=== PATIENT | male | born 1980 | race Two or more races ===

== ENCOUNTER 2018-08-02 10:33 | Emergency (ER) | payer OTHER ==
[2018-08-02] MEDS ORDERED: NS 1,000 ML IV ONE ×2 (10:49→11:02)
[2018-08-02] MEDS ORDERED: ONDANSETRON 4 MG/2 ML VIAL IVP ONE (10:49)
[2018-08-02] MEDS ORDERED: KETOROLAC 30 MG/1 ML SDV IVP ONE (10:50)
[2018-08-02] MEDS ORDERED: KETOROLAC 15 MG/1 ML SDV IVP ONE (11:02)
[2018-08-02] MEDS ORDERED: DIAZEPAM 5 MG TAB PO ONE (11:02)
[2018-08-02] MEDS ORDERED: fentaNYL 100 MCG/2 ML INJ IVP ONE (11:02)
--- NOTE | 2018-08-02 11:12 | EDPHY ---
General Time Seen by Provider: 08/02/18 10:55 Narrative: CLINICAL IMPRESSION: Left ureterolithiasis ASSESSMENT/PLAN: 38-year-old Yemeni-speaking only male with a past medical history of nephrolithiasis, in our area from [place], presents to the emergency department with left flank pain that began this morning. Patient is obviously uncomfortable on arrival but with stable vital signs. He received IV analgesics with significant improvement in discomfort. Urine shows significant hematuria with no pyuria or bacteriuria. Normal creatinine. CT shows an obstructive 7 mm mid left ureterolithiasis associated with hydronephrosis. I offered to call our local urologist but patient states he would rather follow up with his urologist in [place]. He has been seen through [facility] in the past. He currently reports no insurance coverage. He was given prescriptions for Flomax, a urine strainer, Valium, and pain medication. Low threshold for return to ED sooner for worsening symptoms as outlined in person and discharge papers. rigger apprentice used for entirety of history, exam, discussion of diagnostic study results and discharge instructions. DIFFERENTIAL DX: Abdominal pain includes but not limited to acute nephrolithiasis, ureterolithiasis, UTI, pyelonephritis,diverticulitis, SBO, gastroenteritis, constipation ED PROCEDURES: See lab and/or imaging results below ED COURSE: 11:00 a.m.. Patient seen and assessed by myself. Colicky, appears uncomfortable, tachypneic, hypertensive, afebrile. Plan for IV, analgesics, labs, CT scan. Urine with hematuria, suspicious for nephrolithiasis in patient with history of kidney stones. 11:55 a.m.: CT results discussed with Radiology. Patient has a left obstructive 7 mm stone in the mid ureter. Patient was updated on CT results. He is only in the [place] area working and lives in [place]. We discussed urology follow-up in [place] where he has been seen previously. Pain meds and Flomax will be provided. CHIEF COMPLAINT: Left flank pain, "I have a kidney stone". HPI: 38-year-old Yemeni-speaking only male presents to the emergency department with left flank pain radiating over the left hip into the left scrotum since this morning. Patient reports he has a history of kidney stones and believes he has another kidney stone. He reports his last kidney stone was 6 years ago. He has required and nephrostomy to at 1 point in the past in order to retrieve the stone otherwise he has been able to pass most of the stones. Prior care has been done at [facility]. He does not have a local urologist. No reported fever or chills. No dysuria. No testicular swelling or scrotal pain. No history of chronic UTIs. PAST MEDICAL HISTORY: Past history of kidney stones See nurse/triage notes for additional history if applicable Pertinent Past Surgical History: Nephrostomy tube for kidney stones Family History: None reported Social History: Former smoker, otherwise healthy REVIEW OF SYSTEMS: All other systems negative Constitutional: No fever, no chills, appetite change. Cardiovascular: No chest pain, no palpitations. Respiratory: No cough, no shortness of breath. Gastrointestinal: No abdominal pain, no vomiting, diarrhea. Genitourinary: Positive for hematuria, dysuria, positive for left-sided flank pain, pelvic pain Musculoskeletal: Positive for back pain, joint swelling, joint pain, myalgias.] Skin: No rashes, color change. PHYSICAL EXAM: General Appearance: Alert, oriented, appears uncomfortable, colicky, writhing on the bed, Yemeni-speaking only non-toxic appearing, tachypneic, hypertensive , no hypoxia. Respiratory: There are no retractions, lungs are clear to auscultation. Cardiac: Regular rate and rhythm, no murmurs or gallops. Gastrointestinal: Abdomen is soft, nontender, bowel sounds normal, no masses/ hernia, no rigidity, guarding or focal peritoneal findings. Neurological: [ Alert and oriented x 3 Skin: Warm, dry, no rashes, no nodules on palpation. Musculoskeletal: Extremities are symmetrical, full range of motion, no tenderness, deformity, swelling, or erythema. Reproducible left flank pain Psychiatric: Patient is oriented X 3, there is no agitation. MEDICAL DECISION MAKING: Patient was seen independently. Secondary supervising physician at time of evaluation was Dr. Tam . Diagnosis: Left ureterolithiasis. New, requires workup Summary: See Assessment and Plan for summary of ED visit Clinical lab tests: ordered / reviewed. Independent visualization of images, tracing, or specimens: Yes. Discussed CT results with radiology Patient Progress: Stable for discharge. - Diagnostics Imaging Results: Imaging Impressions Abdomen/Pelvis CT 08/02/18 11:03 IMPRESSION: 1. 7 x 5 mm obstructing left ureteral stone causing moderate hydronephrosis. Kenji Mcgarryino was notified these findings by telephone at 11:56 AM on 08/02/2018 - History Smoking Status: Former smoker - Objective Vital Signs: Initial Vital Signs Temperature (C) 36.7 C 08/02/18 10:37 Heart Rate 66 08/02/18 10:37 Respiratory Rate 24 H 08/02/18 10:37 Blood Pressure 156/89 H 08/02/18 10:37 O2 Sat (%) 100 08/02/18 10:37 O2 Delivery Mode Room Air Allergies/Adverse Reactions: No Known Allergies Allergy (Unverified 08/02/18 10:36) Home Medications: Medication Instructions Recorded Diazepam [Valium] 5 mg PO Q8PRN PRN #10 tab 08/02/18 Ondansetron Odt [Zofran Odt] 4 mg PO Q4PRN PRN #7 tab 08/02/18 Tamsulosin HCl [Flomax 0.4 MG (RX)] 0.4 mg PO DAILY #7 cap 08/02/18 oxyCODONE/APAP 5/325 [Percocet 1 tab PO Q6 PRN #12 tab 08/02/18 5/325] Laboratory Results: Laboratory Results 08/02/18 11:30 08/02/18 11:05 08/02/18 08/02/18 08/02/18 11:30 11:05 11:05 WBC 12.16 10^3/uL H 10^3/uL REJ (3.80-9.50) RBC 5.00 10^6/uL 10^6/uL REJ (4.40-6.38) Hgb 13.5 g/dL L g/dL REJ (13.7-17.5) Hct 41.2 % % REJ (40.0-51.0) MCV 82.4 fL fL REJ (81.5-99.8) MCH 27.0 pg L pg REJ (27.9-34.1) MCHC 32.8 g/dL g/dL REJ (32.4-36.7) RDW 13.6 % % REJ (11.5-15.2) Plt Count 249 10^3/uL 10^3/uL REJ (150-400) MPV 10.0 fL fL REJ (8.7-11.7) Neut % (Auto) 87.9 % H % REJ (39.3-74.2) Lymph % (Auto) 7.1 % L % REJ (15.0-45.0) [place] % (Auto) 3.9 % L % REJ (4.5-13.0) Eos % (Auto) 0.1 % L % REJ (0.6-7.6) Baso % (Auto) 0.4 % % REJ (0.3-1.7) Nucleat RBC Rel Count 0.0 % % REJ (0.0-0.2) Absolute Neuts (auto) 10.70 10^3/uL H 10^3/uL REJ (1.70-6.50) Absolute Lymphs (auto) 0.86 10^3/uL L 10^3/uL REJ (1.00-3.00) Absolute Monos (auto) 0.47 10^3/uL 10^3/uL REJ (0.30-0.80) Absolute Eos (auto) 0.01 10^3/uL L 10^3/uL REJ (0.03-0.40) Absolute Basos (auto) 0.05 10^3/uL 10^3/uL REJ (0.02-0.10) Absolute Nucleated RBC 0.00 10^3/uL 10^3/uL REJ (0-0.01) Immature Gran % 0.6 % % REJ (0.0-1.1) Immature Gran # 0.07 10^3/uL 10^3/uL REJ (0.00-0.10) Sodium 138 mEq/L mEq/L (135-145) Potassium 4.6 mEq/L mEq/L (3.5-5.2) Chloride 106 mEq/L mEq/L (97-110) Carbon Dioxide 18 mEq/l L mEq/l (22-31) Anion Gap 14 mEq/L mEq/L (6-14) BUN 16 mg/dL mg/dL (7-23) Creatinine 1.0 mg/dL mg/dL (0.7-1.3) Estimated GFR > 60 Glucose 94 mg/dL mg/dL (70-100) Calcium 10.4 mg/dL mg/dL (8.5-10.4) Specimen Hemolysis 172 Urine Color Urine Appearance Urine pH Ur Specific [place] Urine Protein Urine Ketones Urine Blood Urine Nitrate Urine Bilirubin Urine Urobilinogen Ur Leukocyte Esterase Urine RBC Urine WBC Ur Epithelial Cells Urine Glucose 08/02/18 10:40 WBC RBC Hgb Hct MCV MCH MCHC RDW Plt Count MPV Neut % (Auto) Lymph % (Auto) [place] % (Auto) Eos % (Auto) Baso % (Auto) Nucleat RBC Rel Count Absolute Neuts (auto) Absolute Lymphs (auto) Absolute Monos (auto) Absolute Eos (auto) Absolute Basos (auto) Absolute Nucleated RBC Immature Gran % Immature Gran # Sodium Potassium Chloride Carbon Dioxide Anion Gap BUN Creatinine Estimated GFR Glucose Calcium Specimen Hemolysis Urine Color PALE YELLOW Urine Appearance CLEAR Urine pH 8.0 H (5.0-7.5) Ur Specific [place] 1.017 (1.002-1.030) Urine Protein NEGATIVE (NEGATIVE) Urine Ketones 1+ H (NEGATIVE) Urine Blood 1+ H (NEGATIVE) Urine Nitrate NEGATIVE (NEGATIVE) Urine Bilirubin NEGATIVE (NEGATIVE) Urine Urobilinogen NEGATIVE EU EU (0.2-1.0) Ur Leukocyte Esterase NEGATIVE (NEGATIVE) Urine RBC 50-182 /hpf H /hpf (0-3) Urine WBC 1-3 /hpf /hpf (0-3) Ur Epithelial Cells NONE SEEN /lpf /lpf (NONE-1+) Urine Glucose NEGATIVE (NEGATIVE) Medications Given: Discontinued Medications Diazepam (Valium) 2.5 mg PO EDNOW ONE Stop: 08/02/18 11:03 Last Admin: 08/02/18 11:09 Dose: 2.5 mg Fentanyl (Sublimaze) 50 mcg IVP EDNOW ONE Stop: 08/02/18 11:03 Last Admin: 08/02/18 11:08 Dose: 50 mcg Hydromorphone HCl (Dilaudid) 0.5 mg IVP EDNOW ONE Stop: 08/02/18 12:07 Last Admin: 08/02/18 12:12 Dose: 0.5 mg Sodium Chloride (Ns) 1,000 mls @ 0 mls/hr IV ONCE ONE PRN Reason: Wide Open Stop: 08/02/18 10:50 Last Admin: 08/02/18 11:09 Dose: 1,000 mls Sodium Chloride (Ns) 1,000 mls @ 0 mls/hr IV EDNOW ONE; Wide Open PRN Reason: Protocol Stop: 08/02/18 11:03 Last Admin: 08/02/18 12:00 Dose: 1,000 mls Ketorolac Tromethamine (Toradol) 15 mg IVP EDNOW ONE Stop: 08/02/18 11:03 Last Admin: 08/02/18 11:08 Dose: 15 mg Ondansetron HCl (Zofran) 4 mg IVP EDNOW ONE Stop: 08/02/18 10:50 Last Admin: 08/02/18 12:37 Dose: Not Given Departure - Departure Disposition: Home, Routine, Self-Care Clinical Impression: Ureterolithiasis Condition: Good Instructions: Kidney Stones (ED) Additional Instructions: DISCHARGE INSTRUCTIONS FROM YOUR DOCTOR Thank you for visiting our emergency department today. You were treated by a physician research program assistant today and your case was reviewed with our ED Attending physician. Please keep in mind that discharge from the emergency department does not mean that there is nothing wrong - it simply means that we have not identified an emergency condition that requires further evaluation or treatment in the hospital. You should always plan to follow up with primary care for re- evaluation of your condition in the next 2-3 days. If you have been referred to a specialist, please call as soon as possible (today or tomorrow) to schedule your follow up appointment at the appropriate time. CT SCAN TODAY SHOWS THAT YOU HAVE A 7 MM LEFT URETERAL KIDNEY STONE. THIS MAY PASS ON ITS OWN BUT WE STRONGLY RECOMMEND YOU FOLLOW-UP WITH UROLOGY. PLEASE CONTACT THE PREVIOUS UROLOGIST YOU SAW IN [facility]. A LOCAL UROLOGY REFERRAL WAS ALSO GIVEN. YOU NEED TO CALL FOR AN APPOINTMENT. PLEASE TAKE FLOMAX TO MAKE YOU URINATE MORE. PLEASE STRAIN URINE. PAIN MEDICATION WAS GIVEN WELL. DO NOT DRIVE OR DRINK ALCOHOL WHILE TAKING NARCOTIC PAIN MEDICATION. PLEASE BE AWARE, NARCOTICS CAN CAUSE CONSTIPATION, LETHARGY, AND INCREASE YOUR RISK OF FALLING. DO NOT TAKE TYLENOL AT THE SAME TIME VICODIN OR PERCOCET. PLEASE RETURN TO THE EMERGENCY DEPARTMENT FOR SEVERE PAIN, FEVER OR CHILLS, NAUSEA OR VOMITING, INABILITY TO URINATE, OR ANY OTHER CONCERNS. People present with illnesses and injuries in different ways, and it is always possible that we have missed something. You may always return for re-evaluation if symptoms worsen or if they are not improving or if you develop new/different symptoms. Again, thank you for choosing our emergency department. We hope that you feel better. INSTRUCCIONES DE DESCARGA DE SCOTT MDICO Ayush por visitar nuestro departamento de emergencias jose. Usted fue atendido por un asistente mdico jose y scott ariel fue revisado con nuestro mdico de urgencias. Tenga en cuenta que el andreina del departamento de emergencias no significa que no haya nada forrest, simplemente significa que no hemos identificado mary condicin de emergencia que requiera mary evaluacin o tratamiento adicional en el hospital. Siempre debe planificar un seguimiento con atencin primaria para la reevaluacin de scott condicin en los prximos 2 a 3 mitchell. Si duran sido referido a un especialista, llame lo antes posible (jose o pilar sawyer) para programar scott franklin de seguimiento en el momento adecuado. La tomografia computarizada S BENY MUESTRA QUE TIENE MARY ISA DE RIN URETERAL IZQUIERDA DE 7 MM. ESTO PUEDE PASAR POR SCOTT PROPIA DANIEL LE RECOMENDAMOS EN FORMA EXCEPCIONAL A LA UROLOGA. PNGASE EN CONTACTO CON EL UROLOGO ANTERIOR QUE ANTHONY EN [facility]. TAMBIN SE LE DURAN DADO MARY REFERENCIA DE UROLOGA LOCAL. USTED NECESITA LLAMAR PARA MARY FRANKLIN. POR FAVOR, TOME FLOMAX PARA HACER QUE URZA MS. POR FAVOR ESENINA DE ORINA. La medicacin contra el dolor se mitchell sanchez fern. NO CONDUZCA NI TIFF ALCOHOL MIENTRAS JOB MEDICAMENTOS NARCTICOS PARA EL DOLOR. POR FAVOR TENGA EN CUENTA, LOS NARCTICOS PUEDEN CAUSAR EXTREMINIENTO, Y PUEDE AUMENTAR SCOTT RIESGO DE CADAS. NO TOME TYLENOL AL MISMO TIEMPO QUE VICODIN O PERCOCET. POR FAVOR REGRESE AL DEPARTAMENTO DE EMERGENCIA POR DOLOR JENNI, FIEBRE O ENFERMEDADES, NAUSEA O VMITOS, INCAPACIDAD DE LA URINACIN O CUALQUIER OTRA PREOCUPACIN. Las personas se presentan con enfermedades y lesiones de diferentes maneras, y siempre es posible que nos hayamos perdido algo. Siempre puede regresar para mary nueva evaluacin si los sntomas empeoran o si no mejoran o si presenta s ntomas nuevos o diferentes. Nuevamente, ayush por elegir nuestro departamento de emergencias. Esperamos Referrals: NONE *PRIMARY CARE P,. [Primary Care Provider] - As per Instructions Prescriptions: Diazepam [Valium] 5 mg PO Q8PRN PRN #10 tab PRN Reason: Pain, Breakthrough Ondansetron Odt [Zofran Odt] 4 mg PO Q4PRN PRN #7 tab PRN Reason: Nausea/Vomiting, Can'T Take Po oxyCODONE/APAP 5/325 [Percocet 5/325] 1 tab PO Q6 PRN #12 tab PRN Reason: Pain, Breakthrough Tamsulosin HCl [Flomax 0.4 MG (RX)] 0.4 mg PO DAILY #7 cap Print Language: Yemeni
[2018-08-02 11:40] LABS: PLATELET COUNT 249 10^3/uL (150-400)
[2018-08-02] MEDS ORDERED: HYDROmorphONE/DILAUDID 2 MG/ML INJ IVP ONE (12:06)
[2018-08-02 12:58] VITALS: BP 139/96
== END 2018-08-02 13:08 | disposition home or self-care (01) ==
LOC: EDBD 10:33
DX: N20.1 Calculus of ureter (principal); E86.9 Volume depletion, unspecified
CPT/HCPCS: 96374; J1170; J1885; J3010